=== PATIENT | female | born 1940 | race Caucasian/White ===

== ENCOUNTER 2017-11-03 22:02 | Emergency (ER) | payer MEDICARE, OTHER ==
[2017-11-03] MEDS ORDERED: ACETAMINOPHEN 325 MG TABLET PO ONE (23:22)
--- NOTE | 2017-11-03 23:31 | ER Document Report ---
ED General - General Chief Complaint: Flu Symptoms Stated Complaint: FLU LIKE SYMPTOMS Time Seen by Provider: 11/03/17 23:09 Notes: Patient is a 77-year-old female presents with complaint of fever, cough, congestion. No vomiting. No abdominal pain. No diarrhea. She does a history of breast cancer. She still takes letrozole for this. She has not taken chemotherapy. Last chemotherapy was in 2014. She does have a history of high blood pressure high cholesterol for which she takes verapamil as well as a statin medication. She denies any dysuria. No diarrhea. No other complaints this time. TRAVEL OUTSIDE OF THE [place] IN LAST 30 DAYS: No - Related Data Allergies/Adverse Reactions: No Known Allergies Allergy (Unverified 09/19/14 09:55) Past Medical History - Social History Smoking Status: Never Smoker Frequency of alcohol use: None Drug Abuse: None Family History: Reviewed & Not Pertinent - Past Medical History Cardiac Medical History: Reports: Hx Hypertension - VERAPAMIL,controlled Denies: Hx Coronary Artery Disease, Hx Heart Attack Pulmonary Medical History: Reports: Hx Pneumonia - 1972 Denies: Hx Asthma, Hx Bronchitis, Hx COPD Neurological Medical History: Denies: Hx Cerebrovascular Accident, Hx Seizures GI Medical History: Denies: Hx Hepatitis, Hx Hiatal Hernia, Hx Ulcer Musculoskeltal Medical History: 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 Denies: Hx Mastectomy, Hx Open Heart Surgery, Hx Pacemaker - Immunizations Hx Diphtheria, Pertussis, Tetanus Vaccination: No Hx Pneumococcal Vaccination: 07/23/04 Review of Systems - Review of Systems Notes: My Normal Review Basic REVIEW OF SYSTEMS: CONSTITUTIONAL : Fever EENT: Nasal congestion RESPIRATORY: Recurrent cough. GASTROINTESTINAL: Denies abdominal pain. Denies nausea, vomiting, or diarrhea. GENITOURINARY: Denies difficulty urinating, painful urination, burning, frequency, or blood in urine. MUSCULOSKELETAL: Denies neck or back pain or joint pain or swelling. SKIN: Denies rash or skin lesions. NEUROLOGICAL: Denies altered mental status or loss of consciousness. Denies headache. Denies weakness or paralysis or loss of use of either side. Denies problems with gait or speech. Denies sensory or motor loss. ALL OTHER SYSTEMS REVIEWED AND NEGATIVE. Physical Exam - Vital signs Vitals: Temp Pulse Resp BP Pulse Ox 100.2 F 92 21 H 159/67 H 95 11/03/17 22:29 11/03/17 22:29 11/03/17 22:29 11/03/17 22:29 11/03/17 22:29 - Notes Notes: General Appearance: Well nourished, alert, cooperative, no acute distress, no obvious discomfort. Vitals: reviewed, See vital signs table. Head: no swelling or tenderness to the head Eyes: PERRL, EOMI, Conjuctiva clear Mouth: No decreasd moisture Throat: No tonsillar inflammation, No airway obstruction Ears: Normal-appearing tympanic membranes bilaterally. Neck: Supple, no neck tenderness Lungs: No wheezing, No rales, No rhonci, No accessory muscle use, good air exchange bilaterally. Heart: Normal rate, Regular rythm, No murmur, no rub Abdomen: Normal BS, soft, No rigidity, No abdominal tenderness, No guarding, no rebound, no abdominal masses, no organomegaly Extremities: strength 5/5 in all extremities, good pulses in all extremities, no swelling or tenderness in the extremities, no edema. Skin: warm, dry, appropriate color, no rash Neuro: speech clear, oriented x 3, normal affect, responds appropriately to questions. Course - Re-evaluation Re-evalutation: 11/04/17 03:31 On reevaluation patient looks very well. She does have a mild recurrent cough. She has no difficulty breathing. Vital signs are non-concerning. Her flu swab was negative. Did inform her that despite negative flu swab is still a small chance that she could have the flu. I did talk to her about the risks and benefits of Tamiflu. Patient prefers to hold off with him for this time. Informed of our condition will be discharged and antibiotics it sounds as if she has bronchitis based on her recurrent cough and congestion and low-grade fever. I informed her that currently chest x-ray does not show pneumonia; however, sometimes chest x-rays do not show pneumonia early in the process. She is agreeable to this. I informed her that that she should return to ER immediately if she has any difficulty breathing, recurrent fevers not responding to Tylenol, vomiting, or she feels she is worsening in any way. Patient and her daughter agree with plan and patient will be discharged home. She is to follow-up with primary care doctor on Monday. Dictation of this chart was performed using voice recognition software; therefore, there may be some unintended grammatical errors. - Vital Signs Vital signs: Temp Pulse Resp BP Pulse Ox 97.6 F 82 16 143/66 H 97 11/04/17 02:54 11/04/17 02:54 11/04/17 02:54 11/04/17 02:54 11/04/17 02:54 - Laboratory Result Diagrams: 11/03/17 23:56 11/03/17 23:56 Laboratory results interpreted by me: 11/03/17 11/03/17 11/04/17 23:56 23:56 01:38 RDW 14.2 H Seg Neutrophils % 81.8 H Lymphocytes % 10.7 L Glucose 131 H Urine Ketones TRACE H Ur Leukocyte Esterase TRACE H Urine Ascorbic Acid 40 H Discharge - Discharge Clinical Impression: Acute bronchitis Qualifiers: Bronchitis organism: unspecified organism Qualified Code(s): J20.9 - Acute bronchitis, unspecified Condition: Good Disposition: HOME, SELF-CARE Additional Instructions: BRONCHITIS: You have acute bronchitis. This disease is an infection or inflammation of the air passageways in your lungs. Symptoms usually include cough, low grade fever, shortness of breath, and wheezing. The cough usually persists for a couple of weeks. Most cases of bronchitis get better without antibiotics. We prescribe antibiotics when we believe bacteria are damaging your airways, or if there's high risk the bronchitis will worsen into pneumonia. Increase your fluid intake. A cool mist humidifier may make your lungs more comfortable. An expectorant (cough medicine that loosens phlegm) can help. If you smoke, STOP!!! Recovery from bronchitis can be somewhat slow, but you should see improvement within a day or two. Repeated episodes of bronchitis may result in lung damage -- for example, chronic bronchitis, recurrent pneumonias, or emphysema. Call the doctor if you develop increasing fever, shortness of breath, chest pain, bloody sputum, or otherwise worsen. If you have not improved at all after several days, contact the physician. ANTIBIOTIC THERAPY: You have been given an antibiotic prescription. It's important that you take all the medication, unless instructed otherwise by your physician. Failure to complete the entire course can result in relapse of your condition. Common side effects of antibiotics include nausea, intestinal cramping, or diarrhea. Women may develop vaginal yeast infections, and babies can get yeast (thrush) in the mouth following the use of antibiotics. Contact your physician if you develop significant side effects from this medication. Allergy to this antibiotic can result in hives, wheezing, faintness, or itching. If symptoms of allergy occur, stop the medication and call your doctor. AZITHROMYCIN: Azithromycin (Zithromax) is a broad spectrum antibiotic in the same class as erythromycin. It can treat a variety of bacterial infections, but is most frequently used for respiratory infections. Azithromycin is extremely long-lasting. It accumulates in body tissues and continues to kill bacteria for many days. In order to improve absorption, Azithromycin should be taken at least one hour before or two hours after a meal. It does not have the same strong tendency to upset the stomach as erythromycin and is usually very well tolerated. Patients who have had a rash or other true allergic reactions to erythromycin should not take this medication. Call if you develop gastrointestinal distress, severe diarrhea, rash, hives, itching, or shortness of breath. FOLLOW-UP CARE: If you have been referred to a physician for follow-up care, call the physician s office for an appointment as you were instructed or within the next two days. If you experience worsening or a significant change in your symptoms, notify the physician immediately or return to the Emergency Department at any time for re-evaluation. Please take the antibiotic as prescribed. please return to the ER immediately if you develop recurrent fever not responding to Tylenol, vomiting, difficulty breathing, or feel that you are worsening in any way. please follow up with your doctor on Monday. Prescriptions: Azithromycin [Zithromax 250 mg Tablet] 250 mg PO DAILY #4 tablet Referrals: JASON CYR MD [Primary Care Provider] - 11/06/17
[2017-11-03 23:59] LABS: A TYPE INFLUENZA AG NEGATIVE (NEGATIVE); B INFLUENZA AG NEGATIVE (NEGATIVE)
[2017-11-04 00:09] LABS: ABSOLUTE LYMPHOCYTES (AUTO) 0.6 10^3/uL (0.5-4.7); ABSOLUTE MONOCYTES (AUTO) 0.4 10^3/uL (0.1-1.4); ABSOLUTE NEUT (AUTO) 4.9 10^3/uL (1.7-8.2); BASOPHILS % (AUTO) 0.7 % (0-2); EOSINOPHILS % (AUTO) 0.1 % (0-6); HEMATOCRIT 38.3 % (36.0-47.0); HEMOGLOBIN 13.1 g/dL (12.0-15.5); LYMPHOCYTES % (AUTO) 10.7 % (13-45); MEAN CORPUSCULAR HEMOGLOBIN 30.5 pg (27.0-33.4); MEAN CORPUSCULAR HGB CONC 34.2 g/dL (32.0-36.0); MEAN CORPUSCULAR VOLUME 89 fl (80-97); MONOCYTES % (AUTO) 6.7 % (3-13); PLATELET COUNT 175 10^3/uL (150-450); RED BLOOD COUNT 4.28 10^6/uL (3.72-5.28); RED CELL DISTRIBUTION WIDTH 14.2 % (11.5-14.0); SEGMENTED NEUTROPHILS % (AUTO) 81.8 % (42-78); TOTAL CELLS COUNTED % (AUTO) 100 %
[2017-11-04 00:31] LABS: ANION GAP 13 (5-19); BLOOD UREA NITROGEN 9 mg/dL (7-20); CALCIUM 9.9 mg/dL (8.4-10.2); CARBON DIOXIDE 26 mmol/L (22-30); CHLORIDE 100 mmol/L (98-107); GLUCOSE 131 mg/dL (75-110); POTASSIUM 4.5 mmol/L (3.6-5.0); SODIUM 138.8 mmol/L (137-145)
--- NOTE | 2017-11-04 00:45 | RADIOLOGY REPORT (SQ) ---
EXAM DESCRIPTION: CHEST PA/LAT CLINICAL HISTORY: 77 years, Female, cough fever COMPARISON: 08/17/15 NUMBER OF VIEWS: 2 LIMITATIONS: None. FINDINGS: Normal lung volume, clear parenchyma, normal cardiac silhouette, and moderate levo convexity. IMPRESSION: No acute cardiopulmonary findings.
[2017-11-04 02:11] LABS: APPEARANCE,URINE CLEAR; BILIRUBIN,URINE NEGATIVE (NEGATIVE); COLOR,URINE YELLOW; GLUCOSE, URINE NEGATIVE (NEGATIVE); KETONES,URINE TRACE mg/dL (NEGATIVE); LEUKOCYTE ESTERASE,URINE TRACE (NEGATIVE); NITRITE,URINE NEGATIVE (NEGATIVE); PROTEIN,URINE NEGATIVE (NEGATIVE); URINE SPECIFIC GRAVITY 1.008; UROBILINOGEN,URINE NEGATIVE mg/dL (<2.0)
[2017-11-04] MEDS ORDERED: AZITHROMYCIN 250 MG TABLET PO ONE (02:40)
[2017-11-04 02:56] VITALS: BP 143/66
== END 2017-11-04 02:54 | disposition home or self-care (01) ==
LOC: ER 22:02
DX: J20.9 Acute bronchitis, unspecified (principal); R50.9 Fever, unspecified; I10 Essential (primary) hypertension; Z85.3 Personal history of malignant neoplasm of breast; Z90.710 Acquired absence of both cervix and uterus
CPT/HCPCS: 99283; 36415; 85025; 80048; 81001; 87804; 71046; A9270 ×2

== ENCOUNTER → 2017-12-11 | Outpatient (CLI) | payer MEDICARE, OTHER ==
--- NOTE | 2017-12-11 15:12 | RADIOLOGY REPORT (SQ) ---
EXAM DESCRIPTION: U/S THYROID/SFT TISS HD NECK COMPLETED DATE/TIME: 12/11/2017 1:21 pm REASON FOR STUDY: DISORDER OF THYROID, UNSPEC (E07.9) THYROID MASS E07.9 DISORDER OF THYROID, UNSPE CIFIED COMPARISON: None. TECHNIQUE: Dynamic and static garzon-scale images acquired of the thyroid gland. Selected additional c olor/power Doppler images recorded. All images stored to PACS. LIMITATIONS: None. FINDINGS: RIGHT LOBE: 2.8 x 1.3 cm by 0.8 cm. Heterogeneous echo pattern. No focal mass. No calci fications. LEFT LOBE: 2.1 x 0.7 cm by 0.8 cm. Heterogeneous echo pattern. No well-defined mass. Minimally nod ular hypoechoic material in the lower pole, unclear if this is artifact. If this corresponds to the area of clinical concern, however FNA/biopsy could be performed. ISTHMUS: Normal size. Heterogeneous echo pattern. No cystic or solid masses. OTHER: No other significant finding. IMPRESSION: 1. Thyroid without dominant mass, generally heterogeneous as above. See left lobe findi ngs specifically. TECHNICAL DOCUMENTATION: JOB ID: [id number] [employer]- All Rights Reserved Reading location - IP/workstation name: [email or web address]
== END ==
LOC: RAD 12:32
PROVIDERS: ATTEND Otolaryngology
DX: E07.9 Disorder of thyroid, unspecified (principal)
CPT/HCPCS: 76536

== ENCOUNTER 2018-06-07 10:00 | Day surgery (SDC) | payer MEDICARE, OTHER ==
[2018-06-07] MEDS ORDERED: EPINEPHRINE INJ/PF 1 MG/1 ML AMPULE ONE (10:13)
[2018-06-07] MEDS ORDERED: LIDOCAINE 1%/PHENYLEPHRINE 1.5% 1 ML VIAL ONE (10:13)
[2018-06-07] MEDS ORDERED: CHONDR SU A NA/HYALUR INTRAOC KIT (SURGICARE) ONE (10:14)
[2018-06-07] MEDS: BESIFLOXACIN HCL 0.6% OPH SUSP 5 ML BOTTLE OS PRN ×3 (10:50→11:51)
[2018-06-07] MEDS: TROPICAMIDE 1% OPH SOLN 3 ML OS PRN ×3 (10:50→11:10)
[2018-06-07] MEDS: CYCLOPENTOLATE 0.2%/PHENYLEPHRINE 1% OPH SOLN 2 ML OS PRN ×3 (10:50→11:10)
[2018-06-07] MEDS: TETRACAINE HCL 0.5% OPH SOLN 4 ML OS PRN ×3 (10:51→11:31)
[2018-06-07] MEDS: KETOROLAC TROMETHAMINE 0.45% 4 DROP/0.4 ML DROPERETTE OS PRN ×2 (10:51→12:16)
[2018-06-07] MEDS ORDERED: MIDAZOLAM 2 MG/2 ML INJ ONE (11:27)
--- NOTE | 2018-06-07 22:11 | [facility] DISCHARGE SUMMARY E ---
[facility] Discharge Summary NAME: JOHNY CONNELL AGE: 77Y ADMITTED: 06/07/2018 DISCHARGED: This is a 77-year-old female who underwent complex cataract extraction with use of a Malyugin ring. DIAGNOSES: 1. CATARACT LEFT EYE. 2. PUPIL MIOSIS LEFT EYE. The patient underwent surgery because she had trouble driving during the day secondary to blurred vision. DISCHARGE INSTRUCTIONS: The patient should be on a regular diet. No bending at the waist, no heavy lifting. She should use her Besivance, Ilevro, and Durezol at 3:00 p.m. and 8:00 p.m. and sleep with a rigid shield. I will see her for her 1-day postoperative tomorrow. DICTATING PHYSICIAN: MELANIE FRANCISCO M.D. [id number] PHY#: [id number] ID: [id number] JOB#: [id number] ACCT: [id number] cc:MELANIE FRANCISCO M.D. >
--- NOTE | 2018-06-07 22:11 | [facility] OPERATIVE REPORT E ---
[facility] Operative Report NAME: JOHNY CONNELL AGE: 77Y DATE OF SURGERY: 06/07/2018 ROOM: PREOPERATIVE DIAGNOSES: 1. CATARACT LEFT EYE. 2. PUPIL MIOSIS, LEFT EYE. POSTOPERATIVE DIAGNOSES: 1. CATARACT LEFT EYE. 2. PUPIL MIOSIS, LEFT EYE. OPERATION: Complex cataract extraction with the use of a Malyugin ring due to poor pupil dilation. SURGEON: MELANIE FRANCISCO M.D. ANESTHESIA: TOPICAL. COMPLICATIONS: None. ESTIMATED BLOOD LOSS: None. PROCEDURE: After obtaining appropriate consent, the patient's left eye was prepped and draped in sterile fashion as well as the surgeon in a sterile manner, and the cataract surgery was started. First, the paracentesis blade was used to make a small side-port incision. Viscoelastic was used to inflate the anterior chamber. Next a 2.4 mm incision was made using a 2.4 mm keratome. At this point, the pupil was less than 4.5 mm and was very miotic. In order to complete the capsulorhexis, a Malyugin ring was inserted and found to be in excellent position to help stabilize the pupil. Following this, a continuous capsulorhexis was made using a cystitome and Utrata forceps. Following this, hydrodissection was carried out to make the lens fully loose and mobile, and it was rotated 90 degrees. Following this, a divide and conquer technique was used to phacoemulsify the lens with a CDE of approximately 7.99. The remaining cortex was removed with irrigation/aspiration. Provisc was instilled into the capsular bag to inflate the bag. A [id number] lens of 24.5 diopters was placed. The remaining viscoelastic material was removed with irrigation/aspiration. After this the Malyugin ring was removed. Following this, the incision was found to be watertight. Besivance was instilled into the eye and a protective shield was placed over the eye. The patient returned to the postoperative recovery in stable condition. This was a complex case due to the fact that the Malyugin ring was used due to poor pupillary dilation of less than or equal to 4 mm. DICTATING PHYSICIAN: MELANIE FRANCISCO M.D. [id number] PHY#: [id number] ID: [id number] JOB#: [id number] ACCT: [id number] cc:MELANIE FRANCISCO M.D. >
== END 2018-06-07 12:53 | disposition home or self-care (01) ==
LOC: SC 10:00
PROVIDERS: ATTEND Internal Medicine
DX: H25.812 Combined forms of age-related cataract, left eye (principal); H57.03 Miosis; I10 Essential (primary) hypertension; K21.9 Gastro-esophageal reflux disease without esophagitis; Z79.899 Other long term (current) drug therapy
CPT/HCPCS: 66982; V2632; J2250; J3490 ×2; A9270; J0171; J2370; 142